=== PATIENT | male | born 1945 | race Caucasian/White ===

== ENCOUNTER → 2020-02-01 | Outpatient (CLI) | payer OTHER | LOC: M.MRI 01-18 11:30 | PROVIDERS: ATTEND Family Medicine | DX: M47.816 Spondylosis without myelopathy or radiculopathy, lumbar region (principal); M48.061 Spinal stenosis, lumbar region without neurogenic claudication; M54.5 Low back pain ==

== ENCOUNTER → 2020-02-05 | Outpatient (CLI) | payer OTHER ==
--- NOTE | 2020-02-05 17:26 | 2DMMODE ---
[place] [address] 2 D/M-MODE ECHOCARDIOGRAM Name: ARTURO NEWSOME Room: [facility]#: [id number] Admission: 02/05/20 Attend Phys: Ruslan Layne, Discharge: Date of : 43 Date of Service: 02/05/20 1726 Report #: [id number] THIS REPORT FOR: cc: Judit Frank Linda J. DO Liston, Michael J. MD [facility] ~ APPROVED REPORT Study performed: 02/05/2020 12:34:27 EXAM: Comprehensive 2D, Doppler, and color-flow Echocardiogram Patient Location: Out-Patient BSA: 2.21 HR: 82 bpm BP: 130/72 mmHg Other Information Study Quality: Good Indications Dyspnea 2D Dimensions IVSd: 12.22 (7-11mm) LVOT Diam: 20.26 (18-24mm) LVDd: 46.57 mm PWd: 11.04 (7-11mm) Ascending Ao: 34.42 (22-36mm) LVDs: 30.35 (25-40mm) Aortic Root: 34.90 mm Volumes Left Atrial Volume (Systole) LA ESV Index: 13.90 mL/m2 Aortic Valve AoV Peak Fermin.: 1.09 m/s AO Peak Gr.: 4.73 mmHg LVOT Max P.01 mmHg AO Mean Gr.: 2.64 mmHg LVOT Mean P.94 mmHg LVOT Max V: 1.00 m/s AO V2 VTI: 17.27 cm LVOT Mean V: 0.64 m/s HECTOR (VTI): 3.30 cm2 LVOT V1 VTI: 17.65 cm Mitral Valve E/A Ratio: 0.52 [place] [address] 2 D/M-MODE ECHOCARDIOGRAM Name: ARTURO NEWSOME [id number] Admission: 02/05/20 Attend Phys: Ruslan Layne, Discharge: Date of : 43 Date of Service: 02/05/20 1726 Report #: [id number] MV Decel. Time: 381.24 ms MV E Max Fermin.: 0.35 m/s MV PHT: 110.56 ms MVA (PHT): 1.99 cm2 TDI E/Lateral E': 8.75 E/Medial E': 8.75 Medial E' Fermin.: 0.04 m/s Lateral E' Fermin.: 0.04 m/s Pulmonary Valve PV Peak Fermin.: 0.82 m/s PV Peak Gr.: 2.68 mmHg Left Ventricle The left ventricle is normal size. There is normal LV segmental wall motion. Mild concentric left ventricular hypertrophy. Left ventricular systolic function is normal. LVEF is 55-60%. Grade I - abnormal relaxation pattern. Right Ventricle The right ventricle is normal size. The right ventricular systolic function is normal. Atria The left atrium size is normal. The right atrium size is normal. Aortic Valve The aortic valve is normal in structure. No aortic regurgitation is present. There is no aortic valvular stenosis. Mitral Valve The mitral valve is normal in structure. There is no mitral valve regurgitation noted. No evidence of mitral valve stenosis. Tricuspid Valve The tricuspid valve is normal in structure. There is no tricuspid valve regurgitation noted. Pulmonic Valve The pulmonary valve is normal in structure. There is no pulmonic valvular regurgitation. Great Vessels The aortic root is normal in size. IVC is normal in size and collapses >50% [place] [address] 2 D/M-MODE ECHOCARDIOGRAM Name: ARTURO NEWSOME Room: [facility]#: [id number] Admission: 02/05/20 Attend Phys: Ruslan Layne, Discharge: Date of : 43 Date of Service: 02/05/20 1726 Report #: [id number] Pericardium There is no pericardial effusion. <Conclusion> The left ventricle is normal size. Mild concentric left ventricular hypertrophy. Left ventricular systolic function is normal. LVEF is 55-60%. Grade I - abnormal relaxation pattern. IVC is normal in size and collapses >50% with inspiration. <ELECTRONICALLY SIGNED> By: Ruslan Layne MD, FACC 02/05/201725 25 25 Ruslan Layne MD, FACC /INF
--- NOTE | 2020-02-05 18:03 | CARDNUC ---
[place] [address] CARDIAC NUCLEAR IMAGING REPORT Name: ARTURO NEWSOME Room: [facility]#: [id number] Admission: 02/05/20 Attend Phys: Ruslan Layne, Discharge: Date of : 43 Date of Service: 02/05/20 1803 Report #: [id number] THIS REPORT FOR: cc: Judit Frank Linda J. DO Liston,Ruslan Mireles MD [facility] ~ APPROVED REPORT Study performed: 02/05/2020 16:25:44 Exam: Nuclear Stress Test Patient Location: Out-Patient Stress Tech: Elizabeth Saunders Stress Nurse: Dione Honeycutt R.N. NM Tech:JUSTIN Katz Ht: 5 ft 10 in Wt: 229 lbs BSA: 2.21 m2 BMI: 32.85 Medical History Medical History: Increased dyspnea, RBBB, numbness, partial kidney removal, HTN, past smoker, arthritis, significant back and hip pain impairing ambulation. Medications: Amlodipine, Lisinopril. Allergies: No known drug allergies Cardiac Risk Factors: Age, Past Smoker, FHX of CAD, HTN, SOB, RBBB. Previous Cardiac Procedures: None Pretest Chest Pain Characteristics: No chest pain Exercise History: Indeterminate Physical Disabilities: Significant back and hip pain impairing ambulation. Meds Held (24 hrs): None Stress Test Details Stress Test: Pharmacologic stress testing performed using 0.4 mg of regadenoson per 5 mL given IV over 10 seconds. Reason for pharmacologic stress test: Significant back and hip pain impairing ambulation.. HR Resting HR: 75 bpm Max Heart Rate (APMHR): 145 bpm Max HR Achieved: 105 bpm Target HR (85% APMHR): 123 bpm % of APMHR: 72 Recovery HR: 91 [place] [address] CARDIAC NUCLEAR IMAGING REPORT Name: ARTURO NEWSOME Room: [facility]#: [id number] Admission: 02/05/20 Attend Phys: Ruslan Layne, Discharge: Date of : 43 Date of Service: 02/05/20 1803 Report #: [id number] Resting BP: 114/70 mmHg Max BP: 147/75 mmHg ECG Resting ECG: Sinus Rhythm, RBBB Stress ECG: Sinus Rhythm, RBBB ST Change: None Arrhythmia: None Recovery ECG: Sinus Rhythm, RBBB Recovery ST Change: None Recovery Arrhythmia: None Clinical Reason for Termination: Completed protocol Stress Symptoms: None voiced. Exercise duration: 00 min 00 sec Exercise capacity: 1.00 METs Patient Lexiscan infusion without significant cardiac symptoms. Nurse Comments A 74 year old male presented with significant hip and back pain for a sitting Lexiscan r/t increased dyspnea. Test well tolerated. Recovery unremarkable. Patient was stable and stated he felt good when escorted to Nuclear Medicine for imaging. Stress ECG Conclusion The baseline EKG shows sinus rhythm with right bundle branch block without significant ST segment abnormality. EKGs obtained during and post Lexiscan infusion show sinus rhythm and sinus tachycardia with no significant ST segment changes when compared to baseline. There were no significant stress-induced arrhythmias. NM EXAM: Myocardial Perfusion REST/STRESS Imaging Protocol: Rest Tc-99m/Stress Tc-99m 1 day Resting Data Rest SPECT myocardial perfusion imaging was performed in supine position 30 minutes following the intravenous injection of 10.2 mCi of Tc-99m Sestamibi. Time of rest injection: 1400 Date: 02/05/2020 The images were gated to evaluate regional wall motion and calculate left ventricular ejection fraction. Administration Route: [place] [address] CARDIAC NUCLEAR IMAGING REPORT Name: ARTURO NEWSOME Room: [facility]#: [id number] Admission: 02/05/20 Attend Phys: Ruslan Layne, Discharge: Date of : 43 Date of Service: 02/05/20 1803 Report #: [id number] Administration Site: Left Arm Pharmacologic Stress Pharmacologic stress test was performed by injecting Regadenoson 0.4 mg IV push followed by the intravenous injection of 31.1 mCi of Tc-99m Sestamibi. Time of stress injection: 1615 Date: 02/05/2020 Administration Route: IV Administration Site: Left Arm Gated Stress SPECT was performed 40 minutes after stress injection. The images were gated to evaluate regional wall motion and calculate left ventricular ejection fraction. Prone imaging was performed. Study Quality Study: Good Artifact: No artifact Study Data At rest, the left ventricular ejection fraction was 74%.. Post stress, the left ventricular ejection was 70%.. TID = 0.82. Perfusion Myocardial perfusion images obtained at rest and post Lexiscan stress show uniform uptake of the radioisotope throughout the myocardium without defect. Wall Motion Normal left ventricular wall motion. Nuclear Conclusion ECG Findings: negative for ischemia Clinical Findings: negative for ischemia Nuclear Findings: negative for ischemia Exercise Capacity: not assessed Left Ventricular Function: normal Risk Study: low Perfusion images show no defect to suggest infarct or ischemia. Left ventricular systolic function is normal on gated studies. This is a low risk study. <Conclusion> The baseline EKG shows sinus rhythm with right bundle branch block without significant ST segment abnormality. [place] [address] CARDIAC NUCLEAR IMAGING REPORT Name: ARTURO NEWSOME Room: [facility] Nga#: [id number] Admission: 02/05/20 Attend Phys: Ruslan Layne, Discharge: Date of : 43 Date of Service: 02/05/20 1803 Report #: [id number] post Lexiscan infusion show sinus rhythm and sinus tachycardia with no significant ST segment changes when compared to baseline. There were no significant stress-induced arrhythmias. <ELECTRONICALLY SIGNED> By: Ruslan Layne MD, FACC 02/05/201802 02 02 Ruslan Layne MD, FACC /INF
== END ==
LOC: M.CRD 01-26 08:31
PROVIDERS: ATTEND Internal Medicine Cardiovascular Disease
DX: R06.00 Dyspnea, unspecified (principal); I10 Essential (primary) hypertension; Z82.49 Family history of ischemic heart disease and other diseases of the circulatory system

== ENCOUNTER → 2020-07-17 | Outpatient (CLI) | payer MEDICARE ==
[~2020-07-17] MED LIST: B COMPLEX1 EACH PO; NORVASC10 MG PO; PRINIVIL40 MG PO; PROTONIX40 M2 PO; RESTORIL15 M1 PO
[2020-07-17 11:23] VITALS: BP 119/67
[2020-07-17 12:01] LABS: ALBUMIN 3.2 g/dL (3.4-5.0); CALCIUM 8.1 mg/dL (8.5-10.1); CREATININE 1.2 mg/dL (0.6-1.3); POTASSIUM 4.2 mmol/L (3.5-5.1); TOTAL BILIRUBIN 0.7 mg/dL (<0.1-1.0); TOTAL PROTEIN 7.1 g/dL (6.4-8.2)
[2020-07-17 12:47] VITALS: BP 111/69
[2020-07-17 12:58] VITALS: BP 111/65
[2020-07-17 13:11] VITALS: BP 111/65
[2020-07-17 13:36] VITALS: BP 114/66
== END ==
LOC: M.CT 10:30
PROVIDERS: ATTEND Internal Medicine Cardiovascular Disease
DX: I25.10 Atherosclerotic heart disease of native coronary artery without angina pectoris (principal); I77.819 Aortic ectasia, unspecified site; K44.9 Diaphragmatic hernia without obstruction or gangrene

== ENCOUNTER → 2020-07-23 | Outpatient (CLI) | payer MEDICARE ==
--- NOTE | 2020-07-31 14:36 | PF ---
[address] [address] PULMONARY FUNCTION REPORT Name: ARTURO NEWSOME Room: [facility].#: [id number] Admission: 07/23/20 Attend Phys: Janeth Ramirez RN Discharge: Date of : 43 Report #: [id number] THIS REPORT FOR: cc: Judit Frank Linda J. DO Pervez, Adeel MD ~ DATE OF SERVICE: 07/23/2020 The FEV1/FVC ratio is normal at 72% with an FVC normal at 96%. The FEV1 is also normal at 95%. The XQA83-37 is normal at 78%. After the administration of a bronchodilator, there is a 41% increase in BVG63-71. There is no significant change in any of the other values mentioned here after the administration of a bronchodilator. The patient's post-bronchodilator FEV1 is 3.01 liters. The patient's flow volume loop is concave upwards. The total lung capacity is normal at 86% with residual volume mildly decreased to 75%. The DLCO as adjusted for hemoglobin is decreased to 64%. IMPRESSION: 1. Spirometry is normal; however, there is a 41% increase in YXE22-10 after the administration of a bronchodilator. The flow volume loop is also concave upwards. Minimal obstruction can lead to these findings. These could also be normal variants. Clinical correlation is advised. 2. The lung volumes are normal with the exception of the residual volume being mildly decreased to 75%. This could also be a normal variant or could indicate mild restriction. Again, clinical correlation is advised. 3. The DLCO as adjusted for hemoglobin is decreased to 64%. <ELECTRONICALLY SIGNED> By: Ha Melgar MD 07/31/20 1436 0917 0003Ha Melgar MD /nt
== END ==
LOC: M.PUL 08:55
PROVIDERS: ATTEND Nurse Practitioner
DX: R06.02 Shortness of breath (principal); I10 Essential (primary) hypertension

== ENCOUNTER → 2020-12-09 | Outpatient (CLI) | payer MEDICARE ==
--- NOTE | 2020-12-10 11:59 | EXE ---
[place] [address] STRESS ECHOCARDIOGRAM Name: ARTURO NEWSOME Room: [facility]#: [id number] Admission: 12/09/20 Attend Phys: Ruslan Layne, Discharge: Date of : 43 Date of Service: 12/09/20 1644 Report #: [id number] THIS REPORT FOR: cc: Judit Frank Linda J. DO Blick, David R. MD [facility] ~ APPROVED REPORT Study performed: 12/09/2020 15:26:32 Exam: Stress Echocardiogram Indication: Dyspnea , Dizziness, CAD Stress Nurse: Dione Honeycutt RN Supervising Physician: Sriram Preciado MD Ht: 5 ft 11 in HR: 84 bpm BP: 137/82 mmHg Medical History Cardiac Risk Factors: HTN, FHX of CAD, Tobacco History (Former) Procedure The patient underwent an Exercise Stress Test using the Lokesh Protocol. Blood pressure, heart rate, and EKG were monitored. An Echocardiogram was performed by electroencephalographic technician in four stages in quad fashion. At peak stress, four selected images were obtained and placed side by side with resting images for comparison. Stress Test Details Stress Test: Exercise stress testing was performed using a Lokesh protocol. HR Resting HR: 84 bpm Max Heart Rate (APMHR): 144 bpm Max HR Achieved: 150 bpm Target HR (85% APMHR): 122 bpm % of APMHR: 104 Recovery HR: 107 bpm HR response to stress: Normal HR response to stress BP Resting BP: 138/82 mmHg Max BP: 160/70 mmHg Recovery BP: 112/90 mmHg BP response to stress: [place] [address] STRESS ECHOCARDIOGRAM Name: ARTURO NEWSOME Room: [facility]#: [id number] Admission: 12/09/20 Attend Phys: Ruslan Layne, Discharge: Date of : 43 Date of Service: 12/09/20 1644 Report #: [id number] stress. ECG Resting ECG: Sinus Rhythm, RBBB Stress ECG: Sinus Rhythm, RBBB ST Change: None Maximum ST Deviation: 0 mm Arrhythmia: VPC's Recovery ECG: Sinus Rhythm, RBBB Recovery ST Change: None Recovery ST Deviation: 0 mm Recovery Arrhythmia: VPC Clinical Reason for Termination: Maximal effort Exercise duration: 5 min 06 sec Highest Stage Achieved: Stage 2: 2.5 mph at 12% grade. Exercise capacity: 7.05 METs Overall Exercise Capacity for Age: Normal Pre-Stress Echo The resting Echocardiogram showed normal left ventricular contractility with an estimated Ejection Fraction of about 55-60%. Post-Stress Echo The stress Echocardiogram showed normal left ventricular contractility with an estimated Ejection Fraction of about >70%. Compared to rest, there were no stress-induced wall motion abnormalities. Conclusion Clinical Response: Non-ischemic Exercise Capacity: Below Average Stress ECG Response: Non-ischemic Stress Echo Images: Non-ischemic low risk stress echo for predicting future cardiac events. Other Information Study Quality: Fair <Conclusion> low risk stress echo for predicting future cardiac events. <ELECTRONICALLY SIGNED> By: Sriram Preciado MD, [facility] 12/09/20 1644 43 Sriram Preciado MD, FAC /INF
== END ==
LOC: M.CRD 14:40
PROVIDERS: ATTEND Internal Medicine Cardiovascular Disease
DX: I25.10 Atherosclerotic heart disease of native coronary artery without angina pectoris (principal); R06.00 Dyspnea, unspecified

== ENCOUNTER → 2021-02-26 | Outpatient (CLI) | payer MEDICARE | LOC: M.RAD 13:47 | PROVIDERS: ATTEND Internal Medicine Critical Care Medicine | DX: R06.00 Dyspnea, unspecified (principal); M25.78 Osteophyte, vertebrae ==